=== PATIENT | female | born 1965 | race Two or more races ===

== ENCOUNTER 2016-12-01 12:37 | Emergency (ER) | payer MEDICAID, OTHER ==
[~2016-12-01] VITALS: Ht 152.4 cm; Wt 76.9 kg
[~2016-12-01 12:37] MED LIST: ALBU0.63 NEB; IBUP-1222 PO; IBUP-1484 PO; METH750T87 PO; PANT40TA3 PO
[2016-12-01] MEDS ORDERED: ONDANSETRON 2MG/ML, 2ML IVPush ONE (13:30)
[2016-12-01] MEDS ORDERED: ONDANSETRON 2MG/ML, 2ML ONE (13:30)
[2016-12-01] MEDS ORDERED: SODIUM CHLORIDE 0.9% 1,000ML IVBOLUS ONE (13:30)
[2016-12-01] MEDS ORDERED: KETOROLAC 30 MG/1 ML IVPush ONE (13:30)
[2016-12-01] MEDS ORDERED: SODIUM CHLORIDE FLUSH 10ML SYR IVF ONE (13:30)
[2016-12-01] MEDS ORDERED: KETOROLAC 30 MG/1 ML ONE (13:30)
[2016-12-01 13:39] LABS: HEMOGLOBIN 14.7 g/dL (11.7-16.4); WHITE BLOOD COUNT 15.8 x10^3/uL (3.4-10)
[2016-12-01 13:48] LABS: BLOOD UREA NITROGEN 9 mg/dL (7-18)
[2016-12-01 13:51] LABS: ASPARTATE AMINO TRANSFERASE 20 U/L (15-37)
[2016-12-01] MEDS ORDERED: CEFTRIAXONE PMX 1GM/50ML 50 ML IV ONE (14:00)
[2016-12-01] MEDS ORDERED: CEFTRIAXONE PMX 1GM/50ML 50 ML ONE (14:29)
[2016-12-01] MEDS ORDERED: MORPHINE SULFATE 4 MG/ML, 1ML ONE (14:29)
[2016-12-01] MEDS ORDERED: MORPHINE SULFATE 4 MG/ML, 1ML IVPush ONE (14:30)
[2016-12-01 14:44] VITALS: BP 141/87
== END 2016-12-01 14:52 | disposition home or self-care (01) ==
LOC: ED 13:07
DX: J20.8 Acute bronchitis due to other specified organisms (principal); B96.89 Other specified bacterial agents as the cause of diseases classified elsewhere; R11.2 Nausea with vomiting, unspecified; E86.0 Dehydration; I10 Essential (primary) hypertension
CPT/HCPCS: 36415; 71010; 80053; 81003; 83690; 85025; 96374; 96375; 99285; J0696; J1885; J2405; J7030

== ENCOUNTER 2017-04-16 21:31 | Emergency (ER) | payer MEDICAID ==
[~2017-04-16] VITALS: Ht 152.4 cm; Wt 79.2 kg
[2017-04-16 21:32] VITALS: BP 127/81
[2017-04-16] MEDS ORDERED: KETOROLAC 30 MG/1 ML ONE (22:07)
[2017-04-16] MEDS ORDERED: KETOROLAC 30 MG/1 ML IM ONE (22:30)
== END 2017-04-16 22:55 | disposition home or self-care (01) ==
LOC: ED 22:52
DX: M25.521 Pain in right elbow (principal); I10 Essential (primary) hypertension
CPT/HCPCS: 73080; 96372; 99284; J1885

== ENCOUNTER 2018-02-22 18:35 | Emergency (ER) | payer MEDICAID ==
[~2018-02-22] VITALS: Ht 152.4 cm; Wt 77.8 kg
[2018-02-22 18:59] VITALS: BP 138/74
[2018-02-22 19:30] LABS: MEAN CORPUSCULAR HEMOGLOBIN 30.6 pg (27.0-34.8); MEAN CORPUSCULAR HGB CONC 33.6 g/dL (32.4-35.8); MEAN CORPUSCULAR VOLUME 91.1 fL (80-100); MEAN PLATELET VOLUME 9.7 fL (7.4-10.4); PLATELET COUNT 272 x10^3/uL (130-400); RED BLOOD COUNT 4.87 x10^6/uL (3.82-5.3); RED CELL DISTRIBUTION WIDTH 14.2 % (9.6-15.2)
[2018-02-22] MEDS ORDERED: ONDANSETRON ODT 4 MG PO ONE (19:30)
[2018-02-22 19:40] LABS: ALBUMIN 3.9 g/dL (3.4-5.0); ANION GAP 9 mmol/L (5-15); CALCIUM 9.4 mg/dL (8.5-10.1); CHLORIDE 106 mmol/L (98-107); CREATININE 0.79 mg/dL (0.55-1.02)
[2018-02-22 19:47] LABS: BASOPHILS % (AUTO) 3 % (0-1); EOSINOPHILS # (AUTO) 0.13 x10^3/uL (0-0.4); EOSINOPHILS % (AUTO) 1 % (1-7); LYMPHOCYTES # (AUTO) 5.08 x10^3/uL (1-3.4); LYMPHOCYTES % (AUTO) 39 % (22-44); MD SCAN; MONOCYTES # (AUTO) 0.32 x10^3/uL (0.2-0.8); MONOCYTES % (AUTO) 2 % (2-9); NEUTROPHILS # (AUTO) 7.11 x10^3/uL (1.8-6.8); NEUTROPHILS % (AUTO) 55 % (42-75)
[2018-02-22] MEDS ORDERED: IBUPROFEN 800 MG TABLET ONE (19:51)
[2018-02-22] MEDS ORDERED: KETOROLAC 30 MG/1 ML ONE (19:56)
[2018-02-22] MEDS ORDERED: ONDANSETRON ODT 4 MG ONE (19:56)
[2018-02-22 19:57] LABS: MICROSCOPIC NOT IND
[2018-02-22 20:04] LABS: CULTURE INDICATED? NO
[2018-02-22] MEDS ORDERED: ACET325T14 PO (20:04)
[2018-02-22] MEDS ORDERED: ETOD400T PO (20:06)
[2018-02-22] MEDS ORDERED: BUDE10.2 INH (20:06)
[2018-02-22] MEDS ORDERED: ATOR40TA PO (20:07)
[2018-02-22] MEDS ORDERED: RANI150C PO (20:07)
[2018-02-22] MEDS ORDERED: OMEP-110 PO (20:07)
[2018-02-22] MEDS ORDERED: METF500T17 PO (20:08)
[2018-02-22] MEDS ORDERED: GUAI5SYR PO (20:09)
[2018-02-22] MEDS ORDERED: ESCI5TAB PO (20:09)
== END 2018-02-22 21:28 | disposition home or self-care (01) ==
LOC: ED 21:01
DX: R11.2 Nausea with vomiting, unspecified (principal); R53.1 Weakness; M79.10 Myalgia, unspecified site; I10 Essential (primary) hypertension; E11.9 Type 2 diabetes mellitus without complications; Z90.89 Acquired absence of other organs; Z90.49 Acquired absence of other specified parts of digestive tract; Z90.710 Acquired absence of both cervix and uterus
CPT/HCPCS: 36415; 80048; 81003; 82040; 84443; 85025; 99284; Q0162

== ENCOUNTER 2018-03-21 14:33 | Observation (INO) | payer MEDICAID ==
[~2018-03-21] VITALS: Ht 152.4 cm; Wt 78.9 kg
[~2018-03-21 14:33] MED LIST changes: +ACET325T14 PO; +ATOR40TA PO; +BUDE10.2 INH; +ESCI5TAB PO; +ETOD400T PO; +GUAI5SYR PO; +METF500T17 PO; +OMEP-110 PO; +RANI150C PO
[2018-03-21] MEDS ORDERED: ASPIRIN 81 MG TABLET CHEW PO ONE (15:00)
[2018-03-21 15:09] LABS: BASOPHILS # (AUTO) 0.08 x10^3/uL (0-0.1); BASOPHILS % (AUTO) 1 % (0-1); EOSINOPHILS # (AUTO) 0.11 x10^3/uL (0-0.4); EOSINOPHILS % (AUTO) 1 % (1-7); LYMPHOCYTES # (AUTO) 4.05 x10^3/uL (1-3.4); LYMPHOCYTES % (AUTO) 36 % (22-44); MD NO; MEAN CORPUSCULAR HEMOGLOBIN 30.5 pg (27.0-34.8); MEAN CORPUSCULAR HGB CONC 33.4 g/dL (32.4-35.8); MEAN CORPUSCULAR VOLUME 91.2 fL (80-100); MEAN PLATELET VOLUME 9.3 fL (7.4-10.4); MONOCYTES % (AUTO) 4 % (2-9); NEUTROPHILS # (AUTO) 6.43 x10^3/uL (1.8-6.8); NEUTROPHILS % (AUTO) 58 % (42-75); PLATELET COUNT 254 x10^3/uL (130-400); RED BLOOD COUNT 4.92 x10^6/uL (3.82-5.3); RED CELL DISTRIBUTION WIDTH 13.6 % (9.6-15.2)
[2018-03-21 15:21] LABS: ALANINE AMINOTRANSFERASE 45 U/L (12-78); ALBUMIN 3.6 g/dL (3.4-5.0); ANION GAP 8 mmol/L (5-15); CALCIUM 9.1 mg/dL (8.5-10.1); CHLORIDE 105 mmol/L (98-107); CREATININE 0.88 mg/dL (0.55-1.02)
[2018-03-21 15:26] LABS: ALKALINE PHOSPHATASE 121 U/L (45-117); BILIRUBIN,TOTAL 0.2 mg/dL (0.2-1.0); TOTAL PROTEIN 7.5 g/dL (6.4-8.2); TROPONIN I < 0.015 ng/mL (0.000-0.045)
[2018-03-21] MEDS ORDERED: ASPIRIN 81 MG TABLET CHEW ONE (15:27)
[2018-03-21] MEDS ORDERED: KETOROLAC 30 MG/1 ML ONE (15:49)
[2018-03-21] MEDS ORDERED: KETOROLAC 30 MG/1 ML IM ONE (16:00)
[2018-03-21] MEDS ORDERED: NITROGLYCERIN SINGLE TAB 0.4 MG SL PRN (16:00)
[2018-03-21] MEDS ORDERED: NITROGLYCERIN SINGLE TAB 0.4 MG SL ONE (16:06)
[2018-03-21] MEDS ORDERED: SODIUM CHLORIDE FLUSH 10ML SYR IVF PRN (17:00)
[2018-03-21] MEDS ORDERED: morphine SULFATE 10 MG/ML, 1ML IV PRN (17:30)
[2018-03-21] MEDS ORDERED: CYCLOBENZAPRINE 10 MG TABLET PO PRN (17:30)
[2018-03-21] MEDS ORDERED: KETOROLAC 30 MG/1 ML IV PRN (17:30)
[2018-03-21] MEDS ORDERED: NITROGLYCERIN 0.4 MG BOTTLE (25 TABS) SL PRN (17:30)
[2018-03-21] MEDS ORDERED: LIDODERM 5% PATCH TD PRN (17:30)
[2018-03-21] MEDS ORDERED: NITROGLYCERIN 0.4 MG/SPRAY SL PRN (17:30)
[2018-03-21] MEDS ORDERED: morphine SULFATE 10 MG/ML, 1ML IVPush PRN (17:30)
[2018-03-21 17:58] LABS: CHOLESTEROL, TOTAL 187 mg/dL (140-239); TRIGLYCERIDES 212 mg/dL (50-200); VLDL CHOLESTEROL 42 mg/dL (0-25)
[2018-03-21 18:02] LABS: CHOL/HDL RATIO 5.3; HDL CHOL % 19 % (28-40); HDL CHOLESTEROL (DIRECT) 35 mg/dL (40-60); LDL CHOLESTEROL,CALCULATED 110 mg/dL (54-169); LDL/HDL RATIO 3.1 (0.5-3.0); TROPONIN I < 0.015 ng/mL (0.000-0.045)
[2018-03-21 18:13] VITALS: BP 107/69
[2018-03-21 18:14] LABS: HEMOGLOBIN A1C 6.4 % (4.2-6.3)
[2018-03-21] MEDS: NICOTINE 14MG/24 HR PATCH.TD24 TD SCH (18:28)
[2018-03-21] MEDS: ALBUTEROL SULFATE 2.5 MG/3 ML NPPB SCH (18:30)
[2018-03-21 19:29] VITALS: BP 99/57
[2018-03-21] MEDS: ACETAMINOPHEN 325 MG TABLET PO PRN (20:10)
[2018-03-21] MEDS: SODIUM CHLORIDE FLUSH 10ML SYR IVF SCH (20:11)
[2018-03-21] MEDS: INSULIN LISPRO 100 UNITS/ML, PEN SQ-INSULIN SCH (20:11)
[2018-03-21 20:24] LABS: TROPONIN I < 0.015 ng/mL (0.000-0.045)
[2018-03-21] MEDS: BUDESONIDE 0.5 MG/2 ML INHA NPPB SCH (21:00)
[2018-03-21] MEDS ORDERED: ATORVASTATIN 40 MG TABLET PO SCH (21:00)
[2018-03-22] MEDS: ALBUTEROL SULFATE 2.5 MG/3 ML NPPB SCH ×3 (00:30→11:00)
[2018-03-22 01:30] VITALS: BP 112/69
[2018-03-22] MEDS ORDERED: ASPIRIN 325 MG TABLET EC PO SCH (06:00)
[2018-03-22] MEDS: INSULIN LISPRO 100 UNITS/ML, PEN SQ-INSULIN SCH ×3 (07:00→16:00)
[2018-03-22 07:11] VITALS: BP 107/64
[2018-03-22] MEDS: BUDESONIDE 0.5 MG/2 ML INHA NPPB SCH (07:47)
[2018-03-22] MEDS: SODIUM CHLORIDE FLUSH 10ML SYR IVF SCH (08:49)
[2018-03-22] MEDS ORDERED: TEMPLATE NON-FORMULARY MED. (Budesonide/Formoterol Fumarate (Symbicort 160-4.5 Mcg Inhaler INH SCH (09:00)
[2018-03-22] MEDS ORDERED: FAMOTIDINE 20 MG TABLET PO SCH (09:00)
[2018-03-22] MEDS ORDERED: OMEPRAZOLE 20 MG CAPSULE.DR PO SCH (09:00)
[2018-03-22] MEDS ORDERED: CITALOPRAM 10 MG TABLET PO SCH (09:00)
[2018-03-22] MEDS ORDERED: metFORMIN 500 MG TABLET PO SCH (09:00)
[2018-03-22] MEDS: ACETAMINOPHEN 325 MG TABLET PO PRN (14:44)
[2018-03-22 15:29] VITALS: BP 127/78
[2018-03-22] MEDS ORDERED: PANT40TA3 PO (16:20)
[2018-03-22] MEDS ORDERED: CYCL5TAB PO (16:20)
[2018-03-22] MEDS ORDERED: NAPR-856 PO (16:20)
[2018-03-22] MEDS: NICOTINE 14MG/24 HR PATCH.TD24 TD SCH (17:00)
== END 2018-03-22 18:45 | disposition home or self-care (01) ==
LOC: ED 16:42 → INTOOBSV 16:48 → EDIP 16:48 → 5SO 18:04
PROVIDERS: ADMIT Hospitalist; ATTEND Hospitalist
DX: R07.89 Other chest pain (principal); E11.65 Type 2 diabetes mellitus with hyperglycemia; E78.5 Hyperlipidemia, unspecified; F17.200 Nicotine dependence, unspecified, uncomplicated; I10 Essential (primary) hypertension; J45.909 Unspecified asthma, uncomplicated; K21.9 Gastro-esophageal reflux disease without esophagitis; Z80.6 Family history of leukemia; Z82.3 Family history of stroke; Z82.49 Family history of ischemic heart disease and other diseases of the circulatory system; Z90.710 Acquired absence of both cervix and uterus
CPT/HCPCS: 36415; 71045; 78452; 80053; 80061; 82962; 83036; 83690; 84484; 85025; 93005; 93017; 94640; 96372; 96374; 99284; A9502; C9898; G0378; J1815; J1885; J7613; J7626; 99285

== ENCOUNTER 2018-05-16 20:03 | Emergency (ER) | payer MEDICAID ==
[~2018-05-16] VITALS: Ht 152.4 cm; Wt 79.2 kg
[~2018-05-16 20:03] MED LIST changes: +CYCL5TAB PO; +NAPR-856 PO
[2018-05-16 20:19] VITALS: BP 145/86
--- NOTE | 2018-05-16 20:36 | NUR ---
Laura rendon in [facility] - 05/16/18 at 2040 by [place] ARRIVED VIA [facility] WITH COMPLAINT OF KNEE PAIN.
[2018-05-16 20:50] LABS: BASOPHILS # (AUTO) 0.07 x10^3/uL (0-0.1); BASOPHILS % (AUTO) 1 % (0-1); EOSINOPHILS # (AUTO) 0.15 x10^3/uL (0-0.4); EOSINOPHILS % (AUTO) 1 % (1-7); LYMPHOCYTES # (AUTO) 4.15 x10^3/uL (1-3.4); LYMPHOCYTES % (AUTO) 38 % (22-44); MD NO; MEAN CORPUSCULAR HEMOGLOBIN 29.5 pg (27.0-34.8); MEAN CORPUSCULAR HGB CONC 33.2 g/dL (32.4-35.8); MEAN CORPUSCULAR VOLUME 88.9 fL (80-100); MEAN PLATELET VOLUME 8.8 fL (7.4-10.4); MONOCYTES # (AUTO) 0.75 x10^3/uL (0.2-0.8); MONOCYTES % (AUTO) 7 % (2-9); NEUTROPHILS # (AUTO) 5.88 x10^3/uL (1.8-6.8); NEUTROPHILS % (AUTO) 53 % (42-75); PLATELET COUNT 261 x10^3/uL (130-400); RED CELL DISTRIBUTION WIDTH 13.7 % (9.6-15.2)
[2018-05-16 21:02] LABS: ALBUMIN 3.6 g/dL (3.4-5.0); ANION GAP 6 mmol/L (5-15); CHLORIDE 107 mmol/L (98-107); CREATININE 0.77 mg/dL (0.55-1.02)
== END 2018-05-16 22:30 | disposition home or self-care (01) ==
LOC: ED 21:45
DX: K62.5 Hemorrhage of anus and rectum (principal); J04.0 Acute laryngitis; R05 Cough; Z90.49 Acquired absence of other specified parts of digestive tract; Z90.710 Acquired absence of both cervix and uterus; Z98.51 Tubal ligation status
CPT/HCPCS: 36415; 71045; 80048; 82040; 85025; 99284

== ENCOUNTER 2018-07-05 00:04 | Emergency (ER) | payer MEDICAID ==
[~2018-07-05] VITALS: Ht 152.4 cm; Wt 79.0 kg
[2018-07-05 00:07] VITALS: BP 119/80
[2018-07-05] MEDS ORDERED: PROPARACAINE OPHTH 0.5%, 15ML ONE (00:21)
[2018-07-05] MEDS ORDERED: FLUORESCEIN OPHTHALMIC 1 MG STRIP ONE (00:21)
== END 2018-07-05 00:39 | disposition home or self-care (01) ==
LOC: ED 00:33
DX: H10.33 Unspecified acute conjunctivitis, bilateral (principal); B30.9 Viral conjunctivitis, unspecified; E11.9 Type 2 diabetes mellitus without complications
CPT/HCPCS: 99283

== ENCOUNTER 2018-11-22 17:49 | Emergency (ER) | payer MEDICAID ==
[~2018-11-22] VITALS: Ht 152.4 cm; Wt 78.4 kg
[2018-11-22 21:57] VITALS: BP 112/48
== END 2018-11-22 22:10 | disposition home or self-care (01) ==
LOC: ED 19:56
DX: R07.89 Other chest pain (principal); R06.02 Shortness of breath; I10 Essential (primary) hypertension; E11.9 Type 2 diabetes mellitus without complications; M19.90 Unspecified osteoarthritis, unspecified site; Z90.49 Acquired absence of other specified parts of digestive tract; Z90.710 Acquired absence of both cervix and uterus; Z98.51 Tubal ligation status
CPT/HCPCS: 36415; 71045; 80053; 84484; 85025; 93005; 99284

== ENCOUNTER 2019-02-12 00:44 | Emergency (ER) | payer MEDICAID ==
[~2019-02-12] VITALS: Ht 152.4 cm; Wt 74.9 kg
[~2019-02-12 00:44] MED LIST changes: -IBUP-1484 PO; +IBUP-1902 PO
[2019-02-12 00:47] VITALS: BP 124/73
[2019-02-12] MEDS ORDERED: METF500T17 PO (00:55)
--- NOTE | 2019-02-12 00:55 | NUR ---
PT STATED "I SLEPT ON MY NECK WRONG AND IT WON'T STOP HURTING". PT C/O PAIN TO RIGHT SIDE OF NECK AND SHOULDER. DIFFICULT TO TURN HEAD TO THE SIDE X 3 DAYS. MONITORS APPLIED, SIDERAILS UP X2, CALL LIGHT WITHIN REACH
[2019-02-12] MEDS ORDERED: KETOROLAC 30 MG/1 ML ONE (01:13)
[2019-02-12] MEDS ORDERED: DIAZEPAM 5 MG TABLET ONE (01:13)
--- NOTE | 2019-02-12 01:21 | NUR ---
pt medicated per mar
[2019-02-12] MEDS ORDERED: DIAZEPAM 5 MG TABLET PO ONE (01:30)
[2019-02-12] MEDS ORDERED: KETOROLAC 30 MG/1 ML IM ONE (01:30)
== END 2019-02-12 01:58 | disposition home or self-care (01) ==
LOC: ED 01:43
DX: S16.1XXA Strain of muscle, fascia and tendon at neck level, initial encounter (principal); E11.9 Type 2 diabetes mellitus without complications; M62.838 Other muscle spasm; X58.XXXA Exposure to other specified factors, initial encounter; Y93.89 Activity, other specified; Y92.89 Other specified places as the place of occurrence of the external cause; Y99.8 Other external cause status
CPT/HCPCS: 82962; 96372; 99283; J1885

== ENCOUNTER 2020-10-19 19:34 | Emergency (ER) | payer MEDICAID ==
[~2020-10-19] VITALS: Ht 154.9 cm; Wt 79.9 kg
[~2020-10-19 19:34] MED LIST changes: +ALBUTEROL MDI; -ESCI5TAB PO; +ESCI5TAB8 PO; -ETOD400T PO; +ETOD400T3 PO
--- NOTE | 2020-10-19 20:13 | NUR ---
endoscopic technician note: Pt to room from lobby.
--- NOTE | 2020-10-19 20:26 | NUR ---
PT C/O OF CP FOR LAST 3 DAYS. PAIN BEGAN TO GET WORSE TODAY WITH SWEATING AND SOB. PT REPORTS RADIATION TO ACROSS CHEST TO UNDER LEFT BREAST. PT DENIES N/V/D. PT ATTACHED TO CARD/SP02/BP MONITORS. VSS. NADN. BED IN LOW POSITION, RAILS ENGAGED. CALL LIGHT ON LAP. WCTM
[2020-10-19] MEDS ORDERED: KETOROLAC 30 MG/1 ML ONE (20:38)
[2020-10-19] MEDS ORDERED: CYCLOBENZAPRINE 10 MG TABLET ONE (20:38)
[2020-10-19] MEDS ORDERED: KETOROLAC 30 MG/1 ML IM ONE (21:00)
[2020-10-19] MEDS ORDERED: CYCLOBENZAPRINE 10 MG TABLET PO ONE (21:00)
--- NOTE | 2020-10-19 21:06 | NUR ---
PT TOLERATED COVID TEST WELL. ELECTRONICS ASSEMBLER AT BEDSIDE.
[2020-10-19 21:36] LABS: BASOPHILS % (AUTO) 1 % (0-1); EOSINOPHILS % (AUTO) 1 % (1-7); LYMPHOCYTES % (AUTO) 48 % (22-44); MEAN CORPUSCULAR HEMOGLOBIN 29.6 pg (27.0-34.8); MEAN CORPUSCULAR HGB CONC 33.2 g/dL (32.4-35.8); MEAN PLATELET VOLUME 9.6 fL (7.4-10.4); MONOCYTES % (AUTO) 6 % (2-9); NEUTROPHILS % (AUTO) 45 % (42-75); PLATELET COUNT 229 x10^3/uL (130-400); RED BLOOD COUNT 4.82 x10^6/uL (3.82-5.3); RED CELL DISTRIBUTION WIDTH 14.4 % (9.6-15.2)
[2020-10-19 21:46] LABS: ALANINE AMINOTRANSFERASE 40 U/L (12-78); ALBUMIN 3.7 g/dL (3.4-5.0); ANION GAP 7 mmol/L (5-15); CALCIUM 9.1 mg/dL (8.5-10.1); CHLORIDE 108 mmol/L (98-107); CREATININE 0.58 mg/dL (0.55-1.02)
[2020-10-19 21:50] LABS: ALKALINE PHOSPHATASE 112 U/L (45-117); BILIRUBIN,TOTAL 0.3 mg/dL (0.2-1.0); TOTAL PROTEIN 7.4 g/dL (6.4-8.2); TROPONIN I < 0.015 ng/mL (0.000-0.045)
[2020-10-19] MEDS ORDERED: HYDROcodone/APAP 5/325 TABLET ONE (22:17)
[2020-10-19] MEDS ORDERED: HYDROcodone/APAP 5/325 TABLET PO ONE (22:30)
[2020-10-19] MEDS ORDERED: ONDANSETRON ODT 4 MG ONE (22:40)
[2020-10-19] MEDS ORDERED: ONDANSETRON ODT 4 MG PO ONE (23:00)
[2020-10-19 23:03] VITALS: BP 109/71
== END 2020-10-19 23:09 | disposition home or self-care (01) ==
LOC: ED 22:37
DX: U07.1 COVID-19 (principal); R07.89 Other chest pain; I10 Essential (primary) hypertension; E11.9 Type 2 diabetes mellitus without complications; Z90.49 Acquired absence of other specified parts of digestive tract; Z87.891 Personal history of nicotine dependence
CPT/HCPCS: 36415; 71045; 80053; 83690; 84484; 85025; 93005; 96372; 99285; J1885; Q0162; U0003; U0005